=== PATIENT | female | born 1950 | race Caucasian/White ===

== ENCOUNTER 2019-06-26 12:47 | Emergency (ER) | payer MEDICAID ==
[~2019-06-26] VITALS: Ht 152.4 cm; Wt 59.0 kg
[2019-06-26 17:09] LABS: CLARITY URINE CLEAR (CLEAR); COLOR URINE YELLOW (YELLOW); KETONES URINE NEGATIVE (NEGATIVE); LEUKOCYTE ESTERASE URINE 2+ (NEGATIVE); NITRITE URINE NEGATIVE (NEGATIVE); OCCULT BLOOD URINE NEGATIVE (NEGATIVE); PH URINE 5.5 (4.5-8.0); PROTEIN URINE NEGATIVE (NEGATIVE); UROBILINOGEN URINE 0.2 E.U./dL (0.2-1.0)
[2019-06-26 17:49] VITALS: BP 134/68
== END 2019-06-26 17:50 | disposition home or self-care (01) ==
LOC: ER 12:47
DX: R21 Rash and other nonspecific skin eruption (principal); R30.0 Dysuria
CPT/HCPCS: 81003; 99283

== ENCOUNTER 2024-05-14 10:20 | Emergency (ER) | payer MEDICAID ==
[~2024-05-14] VITALS: Ht 167.6 cm; Wt 64.0 kg
[2024-05-14 10:32] VITALS: O2SAT 95
[2024-05-14] MEDS: MORPHINE SULFATE 4 MG/ML INJ (FOR IV/IM USE) IV ONE (11:55)
[2024-05-14 12:20] LABS: BASOPHILS % 0.7 % (0.0-2.0); EOSINOPHILS % 1.6 % (0.0-5.0); HEMATOCRIT. 39.5 % (36.0-48.0); HEMOGLOBIN. 13.4 g/dL (12.0-16.0); LYMPHOCYTES % 31.6 % (20.0-50.0); MEAN CORPUSCULAR HEMOGLOBIN 31.7 pg (28.0-32.0); MEAN CORPUSCULAR HGB CONC 33.9 g/dL (31.0-37.0); MEAN CORPUSCULAR VOLUME 93.5 fL (81.0-99.0); MONOCYTES % 7.8 % (2.0-8.0); NEUTROPHILS % 58.3 % (40.0-76.0); PLATELET 202 x1000/uL (130-400); RED BLOOD CELL COUNT 4.22 mill/uL (4.2-5.4); RED CELL DISTRIBUTION WIDTH 12.4 % (11.6-14.6); WHITE BLOOD COUNT 5.8 x1000/uL (4.5-11.0)
[2024-05-14] MEDS: ONDANSETRON HCL 4MG/2ML INJ IV ONE (12:25)
[2024-05-14 12:31] LABS: CHLORIDE 107 mEq/L (98-107); POTASSIUM 4.2 mEq/L (3.5-5.1); SODIUM 141 mEq/L (136-145)
[2024-05-14 12:33] LABS: CARBON DIOXIDE 26 mEq/L (21-32)
[2024-05-14 12:34] LABS: CALCIUM 9.2 mg/dL (8.7-10.4)
[2024-05-14 12:37] LABS: TROPONIN I HIGH SENSITIVITY 5 ng/L (3.0-34)
[2024-05-14 12:38] LABS: CREATININE 0.7 mg/dL (0.6-1.0)
[2024-05-14 12:39] LABS: GLUCOSE 97 mg/dL (70-105); UREA NITROGEN BLOOD 11 mg/dL (9-23)
[2024-05-14 12:40] LABS: ALANINE AMINOTRANSFERASE 27 IU/L (10-49); ALBUMIN 4.4 g/dL (3.2-4.8); ASPARTATE AMINOTRANSFERASE 42 IU/L (<34)
[2024-05-14 12:41] LABS: BILIRUBIN TOTAL 0.4 mg/dL (0.1-1.0); PROTEIN TOTAL 6.9 g/dL (6.0-8.3)
[2024-05-14 12:45] LABS: CLARITY URINE CLEAR (CLEAR); COLOR URINE YELLOW (YELLOW); GLUCOSE URINE NEGATIVE (NEGATIVE); KETONES URINE NEGATIVE (NEGATIVE); LEUKOCYTE ESTERASE URINE NEGATIVE (NEGATIVE); NITRITE URINE NEGATIVE (NEGATIVE); OCCULT BLOOD URINE NEGATIVE (NEGATIVE); PROTEIN URINE NEGATIVE (NEGATIVE); SPECIFIC GRAVITY URINE 1.005 (1.005-1.030); UROBILINOGEN URINE 0.2 E.U./dL (0.2-1.0)
[2024-05-14 12:55] LABS: INR 0.9; PROTHROMBIN TIME 10.6 sec (9.6-11.0)
[2024-05-14 13:00] LABS: BILIRUBIN DIRECT < 0.1 mg/dL (<=3.0)
[2024-05-14] MEDS ORDERED: PROT40 MT (13:32)
[2024-05-14 14:04] VITALS: BP 136/65; PULSE 82; RESP 14; TEMP 98.4
== END 2024-05-14 14:10 | disposition home or self-care (01) ==
LOC: ER 10:20
DX: R10.9 Unspecified abdominal pain (principal); K58.9 Irritable bowel syndrome, unspecified; I10 Essential (primary) hypertension; Z98.890 Other specified postprocedural states
CPT/HCPCS: 99285; 74176; 96374; 80076; 80048; 81003; 83690; 85025; 85610; 84484; 36415; 93005; J2405